=== PATIENT | male | born 2000 | race Caucasian/White ===

== ENCOUNTER 2023-04-22 12:57 | Emergency (ER) | payer SELFPAY ==
[2023-04-22] MEDS: Clindamycin HCl 150 MG Cap PO ONE (13:45)
[2023-04-23] MEDS: Clindamycin HCl 150 MG Cap ONE (11:33)
== END 2023-04-22 13:50 | disposition home or self-care (01) ==
LOC: LB.ED 12:57
DX: K04.01 Reversible pulpitis (principal); Z88.0 Allergy status to penicillin
CPT/HCPCS: 99282; A9270-GY